=== PATIENT | female | born 2000 | race Hispanic/Latino ===

== ENCOUNTER → 2023-02-11 16:57 | Outpatient (CLI) | payer OTHER, SELFPAY ==
--- NOTE | 2023-02-11 17:00 | DI.RAD.S_ITS ---
PROCEDURE: XR ANKLE LT MIN 3V INDICATIONS: Left ankle strain TECHNIQUE: 3 views of the ankle were acquired. COMPARISON: None. FINDINGS: Bones: No fractures or dislocations. Ankle mortise is normally aligned. No suspicious bony lesions. Soft tissues: Moderate tibiotalar joint effusion. Achilles tendon appears normal. IMPRESSION: Moderate tibiotalar effusion, without displaced fracture. If there remains a high clinical concern or this patient cannot bear weight, consider cross-sectional imaging to exclude occult injury or internal derangement. Dictated by: Yfn Herbert M.D. on 02/11/2023 at 19:25 Approved by: Yfn Herbert M.D. on 02/11/2023 at 19:26
== END ==
PROVIDERS: Referring Provider Nurse Practitioner Family; Visit Provider Nurse Practitioner Family
DX: S96.912A Strain of unspecified muscle and tendon at ankle and foot level, left foot, initial encounter (principal); M25.472 Effusion, left ankle; X58.XXXA Exposure to other specified factors, initial encounter
CPT/HCPCS: 73610